=== PATIENT | female | born 1940 | race Caucasian/White ===

== ENCOUNTER 2020-10-30 19:32 | Observation (INO) | payer MEDICARE ==
--- NOTE | 2020-10-30 20:25 | ERPHSYRPT ---
- History of Present Illness Source: patient, EMS Exam Limitations: no limitations Patient Subjective Stated Complaint: Low BS, passed out in chair Triage Nursing Assessment: pt had low BS and passed out in chair at home. Pt was in the chair, checking her BS and trying to eat when this occured. Pt denies hitting her head, states, "I was sitting in a high back chair". Pt's grandsons witnessed the episode and called EMS. BS was 57 upon EMS arrival. Glucagon oral administered by rescue, pt's BS gradually came up, pt's BS was 102 on arrival to ER via EMS. Physician History: 79 yo wf w syncopal episode at kitchen table before eating. EMS arrived and discovered glucose 57 and oral glucose given w improvement in mentation. Pt is alert and oriented x3 and denies focal weakness/SÁNCHEZ/trauma/chest pain/fever/dyspnea/N/V/diarrhea/dysuria/hematuria. Timing/Duration: resolved prior to arrival Severity: mild Character of Deficits: other (syncope) Deficits: no difficulties Baseline/Normal Cognition: alert oriented x 3 Current Cognition: alert oriented x 3 Baseline Gait: walks w/o assistance Associated Symptoms: denies symptoms Allergies/Adverse Reactions: No Known Drug Allergies Allergy (Verified 10/31/20 02:54) Home Medications: Furosemide 40 mg PO DAILY PRN PRN 10/30/20 [History] Gabapentin 300 mg PO HS 10/30/20 [History] Glipizide [Glipizide ER] 5 mg PO BID 10/30/20 [History] Hydrocodone Bit/Acetaminophen [[place] 10-325 Tablet] 1 tab PO TID PRN PRN 10/30/20 [History] Levothyroxine Sodium [Euthyrox] 100 mcg PO DAILY 10/30/20 [History] Meclizine HCl 25 mg [Antivert 25 mg] 25 mg PO TID 10/30/20 [History] Metoprolol Tartrate 50 mg PO BID 10/30/20 [History] Potassium Chloride 10 meq PO DAILY PRN PRN 10/30/20 [History] Simvastatin 10 mg [Zocor 10MG] 10 mg PO HS 10/30/20 [History] Aspirin EC 81 mg [Ecotrin 81 mg] 81 mg PO DAILY 10/31/20 [History] Insulin Glargine,Hum.rec.anlog [Lantus Solostar] 12 unit SQ DAILY 10/31/20 [History] Hx Tetanus, Diphtheria Vaccination/Date Given: Yes Hx Influenza Vaccination/Date Given: Yes Hx Pneumococcal Vaccination/Date Given: Yes Immunizations Up to Date: Yes Travel Risk - International Travel Have you traveled outside of the country in past 3 weeks: No - Coronavirus Screening Are you exhibiting any of the following symptoms?: No Close contact with a COVID-19 positive Pt in past 14-21 Days: No - Review of Systems Constitutional: No Symptoms Eyes: No Symptoms Ears, Nose, & Throat: No Symptoms Respiratory: No Symptoms Cardiac: No Symptoms Abdominal/Gastrointestinal: No Symptoms Genitourinary Symptoms: No Symptoms Musculoskeletal: No Symptoms Skin: No Symptoms Neurological: No Symptoms, Other (syncope) Psychological: No Symptoms Endocrine: No Symptoms Hematologic/Lymphatic: No Symptoms Immunological/Allergic: No Symptoms - Past Medical History Pertinent Past Medical History: Yes Neurological History: No Pertinent History ENT History: Cataracts Cardiac History: Coronary Artery Disease, High Cholesterol, Hypertension Respiratory History: CHF Endocrine Medical History: Diabetes Type II, Hypothyroidism Musculoskeletal History: No Pertinent History GI Medical History: No Pertinent History History: No Pertinent History Psycho-Social History: No Pertinent History Female Reproductive Disorders: No Pertinent History - Past Surgical History Past Surgical History: Yes Neuro Surgical History: No Pertinent History Cardiac: CABG, Cardiac Catheterization Respiratory: No Pertinent History Gastrointestinal: No Pertinent History Genitourinary: No Pertinent History Musculoskeletal: Joint Replacement Female Surgical History: Hysterectomy Other Surgical History: 3 back surgeries. Total rt hip - Social History Smoking Status: Never smoker Exposure to second hand smoke: No Drug Use: none Patient Lives Alone: No - Female History Hx Now: No - Nursing Vital Signs Nursing Vital Signs: Initial Vital Signs Temperature 97.1 F 10/30/20 19:39 Pulse Rate 67 10/30/20 19:39 Respiratory Rate 18 10/30/20 19:39 Blood Pressure 183/87 10/30/20 19:39 O2 Sat by Pulse Oximetry 98 10/30/20 19:39 Pain Scale Pain Intensity 0 - Lyndsay Coma Scale Best Eye Response ([place]): (4) open spontaneously Best Verbal Response ([place]): (5) oriented Best Motor Response ([place]): (6) obeys commands Lyndsay Total: 15 - Physical Exam General Appearance: no apparent distress Eye Exam: bilateral eye: normal inspection, PERRL, EOMI Ears, Nose, Throat Exam: normal ENT inspection, TMs normal, pharynx normal, moist mucous membranes, pharyngeal erythema Neck Exam: normal inspection, supple, full range of motion, No meningismus, No mass, No Brudzinski, No Kernig's, No carotid bruit Respiratory: normal breath sounds, lungs clear, airway intact, No respiratory distress Cardiovascular: regular rate/rhythm, normal heart sounds, normal peripheral pulses, No murmur Gastrointestinal: soft, normal bowel sounds, No tenderness Back Exam: normal inspection, normal range of motion, No CVA tenderness Extremity Exam: normal inspection, normal range of motion, pelvis stable Peripheral Pulses: carotid (R): 2+, carotid (L): 2+ Mental Status: alert, oriented x 3, cooperative sonographer Exam: normal hearing, normal speech, PERRL Coordination/Gait: normal finger to nose, normal gait, normal cerebellar function, negative Romberg's sign Motor/Sensory: no motor deficit, no sensory deficit, no pronator drift, negative Babinski's sign DTR: bicep (R): 2+, bicep (L): 2+, knee (R): 2+, knee (L): 2+ Skin Exam: normal color, warm, dry, No rash SpO2 Interpretation: normal SpO2: 98 O2 Delivery: Room Air - Course EKG Interpreted by Me: RATE (NSR rate 67/Poor R wave progression/Normal QT-QTc) Ordered Tests: Active Orders 24 hr Category Date Time Status EKG-ER Only STAT Care 10/30/20 20:19 Completed IV Insertion STAT Care 10/30/20 20:19 Completed Heart-Healthy Diet Diet 10/31/20 Breakfast Active HEAD WITHOUT CONTRAST [CT] Stat Exams 10/30/20 21:54 Taken CBC W DIFF Stat Lab 10/30/20 20:40 Completed CMP Stat Lab 10/30/20 20:40 Completed CULTURE,URINE Stat Lab 10/30/20 20:33 Received LIPID PROFILE AM.LAB Lab 10/31/20 04:00 Ordered POCT GLUCOSE Stat Lab 10/30/20 19:43 Completed POCT GLUCOSE Stat Lab 10/30/20 22:31 Completed POCT GLUCOSE Stat Lab 10/31/20 00:13 Completed TROPONIN Q3H Lab 10/30/20 20:40 Completed TROPONIN Q3H Lab 10/30/20 23:30 Completed TROPONIN Q3H Lab 10/31/20 02:00 Completed TROPONIN Q3H Lab 10/31/20 05:30 Ordered TROPONIN Q3H Lab 10/31/20 08:30 Ordered UA W/RFX UR CULTURE Stat Lab 10/30/20 20:33 Completed Transfer Order Routine Transfer 10/31/20 Completed Medication Summary Generic Name Dose Route Start Last Admin Trade Name Julian PRN Reason Stop Dose Admin Acetaminophen 650 mg 10/31/20 01:03 Tylenol 325 Mg PO 11/30/20 01:02 Q4H PRN PRN PAIN AND/OR FEVER Al Hydrox/Mg Hydrox/Simethicone 30 ml 10/31/20 01:03 Maalox Es 30 Ml Unit Dose PO 11/30/20 01:02 Q4H PRN PRN INDIGESTION Sodium Chloride 500 mls @ 20 mls/hr 10/31/20 01:15 10/31/20 03:47 Sodium Chloride 0.9% 500 Ml IV 11/30/20 01:14 20 mls/hr .Q24H PARVEEN Administration Insulin Human Regular 0 unit 10/31/20 01:13 Humulin R SQ 11/30/20 01:12 UD PRN HYPERGLYCEMIA Magnesium Hydroxide 30 - 60 ml 10/31/20 01:03 Milk Of Magnesia 30 Ml PO 11/30/20 01:02 QDP PRN CONSTIPATION Ondansetron HCl 4 mg 10/31/20 01:03 Zofran 4 Mg/2 Ml Vial IV 11/30/20 01:02 Q4H PRN PRN NAUSEA/VOMITING Senna/Docusate Sodium 2 udtab 10/31/20 01:03 Senokot-S Tablet PO 11/30/20 01:02 BID PRN PRN CONSTIPATION Discontinued Medications Generic Name Dose Route Start Last Admin Trade Name Julian PRN Reason Stop Dose Admin Hydrocodone Bitart/Acetaminophen 1 tab 10/31/20 00:16 10/31/20 00:40 Mcfaddin 10/325 Mg Tablet PO 10/31/20 00:17 1 tab STAT ONE Administration Hydrocodone Bitart/Acetaminophen Confirm 10/31/20 00:38 Mcfaddin 10/325 Mg Tablet Administered 10/31/20 00:39 Dose 1 tab .ROUTE .STK-MED ONE Hydralazine HCl 20 mg 10/30/20 23:07 10/30/20 23:12 Apresoline 20 Mg/Ml Inj IV 10/30/20 23:08 20 mg STAT ONE Administration Hydralazine HCl Confirm 10/30/20 23:11 Apresoline 20 Mg/Ml Inj Administered 10/30/20 23:12 Dose 20 mg .ROUTE .K-[facility] ONE Lab/Rad Data: Laboratory Result Diagrams 10/30/20 20:40 10/30/20 20:40 Laboratory Results 10/31/20 10/31/20 10/30/20 Range/Units 02:00 00:13 23:30 WBC (4.0-10.5) K/mm3 RBC (4.1-5.4) M/mm3 Hgb (12.0-16.0) gm/dl Hct (35-47) % MCV (78-100) fl MCH (26-32) pg MCHC (32-36) g/dl RDW (11.5-14.0) % Plt Count (150-450) K/mm3 MPV (7.5-11.0) fl Gran % (36.0-66.0) % Eos # (Auto) (0-0.5) Absolute Lymphs (auto) (1.0-4.6) Absolute Monos (auto) (0.0-1.3) Lymphocytes % (24.0-44.0) % Monocytes % (0.0-12.0) % Eosinophils % (0.00-5.0) % Basophils % (0.0-0.4) % Absolute Granulocytes (1.4-6.9) Basophils # (0-0.4) Sodium (137-145) mmol/L Potassium (3.5-5.1) mmol/L Chloride (98-107) mmol/L Carbon Dioxide (22-30) mmol/L Anion Gap (5-15) MEQ/L BUN (7-17) mg/dL Creatinine (0.52-1.04) mg/dL Estimated GFR ML/MIN Glucose (74-106) mg/dL POC Glucometer 184 H (74 to 106) mg/dL Calcium (8.4-10.2) mg/dL Total Bilirubin (0.2-1.3) mg/dL AST (14-36) U/L ALT (0-35) U/L Alkaline Phosphatase (38-126) U/L Troponin I 0.028 0.029 (0.000-0.034) ng/mL Serum Total Protein (6.3-8.2) g/dL Albumin (3.5-5.0) g/dL Urine Color (YELLOW) Urine Appearance (CLEAR) Urine pH (5-6) Ur Specific [place] (1.005-1.025) Urine Protein (Negative) Urine Ketones (NEGATIVE) Urine Blood (0-5) Jace/ul Urine Nitrite (NEGATIVE) Urine Bilirubin (NEGATIVE) Urine Urobilinogen (0-1) mg/dL Ur Leukocyte Esterase (NEGATIVE) Urine WBC (Auto) (0-5) /HPF Urine RBC (Auto) (0-2) /HPF U Epithel Cells (Auto) (FEW) /HPF Urine Bacteria (Auto) (NEGATIVE) /HPF Urine Mucus (Auto) (NEGATIVE) /HPF Urine Culture Reflexed (NO) Urine Glucose (NEGATIVE) mg/dL 10/30/20 10/30/20 10/30/20 Range/Units 22:31 20:40 20:40 WBC (4.0-10.5) K/mm3 RBC (4.1-5.4) M/mm3 Hgb (12.0-16.0) gm/dl Hct (35-47) % MCV (78-100) fl MCH (26-32) pg MCHC (32-36) g/dl RDW (11.5-14.0) % Plt Count (150-450) K/mm3 MPV (7.5-11.0) fl Gran % (36.0-66.0) % Eos # (Auto) (0-0.5) Absolute Lymphs (auto) (1.0-4.6) Absolute Monos (auto) (0.0-1.3) Lymphocytes % (24.0-44.0) % Monocytes % (0.0-12.0) % Eosinophils % (0.00-5.0) % Basophils % (0.0-0.4) % Absolute Granulocytes (1.4-6.9) Basophils # (0-0.4) Sodium 139 (137-145) mmol/L Potassium 5.4 H (3.5-5.1) mmol/L Chloride 108 H (98-107) mmol/L Carbon Dioxide 21 L (22-30) mmol/L Anion Gap 15.8 H (5-15) MEQ/L BUN 41 H (7-17) mg/dL Creatinine 2.98 H (0.52-1.04) mg/dL Estimated GFR 16.0 ML/MIN Glucose 95 (74-106) mg/dL POC Glucometer 79 (74 to 106) mg/dL Calcium 9.6 (8.4-10.2) mg/dL Total Bilirubin 0.60 (0.2-1.3) mg/dL AST 35 (14-36) U/L ALT 26 (0-35) U/L Alkaline Phosphatase 103 (38-126) U/L Troponin I 0.036 H* (0.000-0.034) ng/mL Serum Total Protein 9.4 H (6.3-8.2) g/dL Albumin 4.9 (3.5-5.0) g/dL Urine Color (YELLOW) Urine Appearance (CLEAR) Urine pH (5-6) Ur Specific [place] (1.005-1.025) Urine Protein (Negative) Urine Ketones (NEGATIVE) Urine Blood (0-5) Jace/ul Urine Nitrite (NEGATIVE) Urine Bilirubin (NEGATIVE) Urine Urobilinogen (0-1) mg/dL Ur Leukocyte Esterase (NEGATIVE) Urine WBC (Auto) (0-5) /HPF Urine RBC (Auto) (0-2) /HPF U Epithel Cells (Auto) (FEW) /HPF Urine Bacteria (Auto) (NEGATIVE) /HPF Urine Mucus (Auto) (NEGATIVE) /HPF Urine Culture Reflexed (NO) Urine Glucose (NEGATIVE) mg/dL 10/30/20 10/30/20 10/30/20 Range/Units 20:40 20:33 19:43 WBC 6.0 (4.0-10.5) K/mm3 RBC 4.20 (4.1-5.4) M/mm3 Hgb 13.0 (12.0-16.0) gm/dl Hct 40.7 (35-47) % MCV 96.9 (78-100) fl MCH 31.0 (26-32) pg MCHC 31.9 L (32-36) g/dl RDW 13.0 (11.5-14.0) % Plt Count 120 L (150-450) K/mm3 MPV 10.8 (7.5-11.0) fl Gran % 76.5 H (36.0-66.0) % Eos # (Auto) 0.08 (0-0.5) Absolute Lymphs (auto) 0.73 L (1.0-4.6) Absolute Monos (auto) 0.59 (0.0-1.3) Lymphocytes % 12.1 L (24.0-44.0) % Monocytes % 9.8 (0.0-12.0) % Eosinophils % 1.3 (0.00-5.0) % Basophils % 0.3 (0.0-0.4) % Absolute Granulocytes 4.60 (1.4-6.9) Basophils # 0.02 (0-0.4) Sodium (137-145) mmol/L Potassium (3.5-5.1) mmol/L Chloride (98-107) mmol/L Carbon Dioxide (22-30) mmol/L Anion Gap (5-15) MEQ/L BUN (7-17) mg/dL Creatinine (0.52-1.04) mg/dL Estimated GFR ML/MIN Glucose (74-106) mg/dL POC Glucometer 75 (74 to 106) mg/dL Calcium (8.4-10.2) mg/dL Total Bilirubin (0.2-1.3) mg/dL AST (14-36) U/L ALT (0-35) U/L Alkaline Phosphatase (38-126) U/L Troponin I (0.000-0.034) ng/mL Serum Total Protein (6.3-8.2) g/dL Albumin (3.5-5.0) g/dL Urine Color STRAW (YELLOW) Urine Appearance CLEAR (CLEAR) Urine pH 7.0 (5-6) Ur Specific [place] 1.006 (1.005-1.025) Urine Protein 30 (Negative) Urine Ketones NEGATIVE (NEGATIVE) Urine Blood MODERATE (0-5) Jace/ul Urine Nitrite NEGATIVE (NEGATIVE) Urine Bilirubin NEGATIVE (NEGATIVE) Urine Urobilinogen NEGATIVE (0-1) mg/dL Ur Leukocyte Esterase SMALL (NEGATIVE) Urine WBC (Auto) 3-5 (0-5) /HPF Urine RBC (Auto) NONE (0-2) /HPF U Epithel Cells (Auto) RARE (FEW) /HPF Urine Bacteria (Auto) RARE (NEGATIVE) /HPF Urine Mucus (Auto) SLIGHT (NEGATIVE) /HPF Urine Culture Reflexed YES (NO) Urine Glucose 50 (NEGATIVE) mg/dL - Progress Progress: improved Progress Note: 10/31/20 00:[address] Helms 10/31/20 02:43 Pt w bradycardia w HR decreasing to mid 30's wo symptoms. She was awake/alert/wo focal weakness during entire stay. Hypertension treated w 20mg IV Hydralyzine w success. - Departure Departure Disposition: Observation Clinical Impression: Bradycardia, Hypoglycemia Condition: Fair Critical Care Time: No
[2020-10-30 20:53] LABS: BASOPHIL % 0.3 % (0.0-0.4); Basophil (Absolute #) 0.02 (0-0.4); Eosinophil % 1.3 % (0.00-5.0); Eosinophil (Absolute #) 0.08 (0-0.5); Hematocrit 40.7 % (35-47); Lymphocyte (Absolute #) 0.73 (1.0-4.6); Lymphocytes % 12.1 % (24.0-44.0); Mean Cell Volume 96.9 fl (78-100); Mean Corpuscular Hgb Concent. 31.9 g/dl (32-36); Mean Platelet Volume 10.8 fl (7.5-11.0); Monocyte (Absolute #) 0.59 (0.0-1.3); Monocytes % 9.8 % (0.0-12.0); Neutrophil % 76.5 % (36.0-66.0); Platelet Count 120 K/mm3 (150-450)
[2020-10-30 21:00] LABS: Appearance CLEAR (CLEAR); Bacteria RARE /HPF (NEGATIVE); Bilirubin NEGATIVE (NEGATIVE); Blood MODERATE Ery/ul (0-5); Epithelial Cells RARE /HPF (FEW); Glucose 50 mg/dL (NEGATIVE); Ketones NEGATIVE (NEGATIVE); Leukocyte Esterase SMALL (NEGATIVE); Mucus SLIGHT /HPF (NEGATIVE); Nitrite NEGATIVE (NEGATIVE); Protein,Urine Dip 30 (Negative); Specific Gravity 1.006 (1.005-1.025); Urobilinogen NEGATIVE mg/dL (0-1)
[2020-10-30 21:08] LABS: ALBUMIN 4.9 g/dL (3.5-5.0); ANION GAP 15.8 MEQ/L (5-15); BILIRUBIN,TOTAL 0.6 mg/dL (0.2-1.3); Calcium 9.6 mg/dL (8.4-10.2); Creatinine 1 2.98 mg/dL (0.52-1.04); Potassium 5.4 mmol/L (3.5-5.1); Total Protein 9.4 g/dL (6.3-8.2)
[2020-10-30] MEDS ORDERED: APRESOLINE 20 MG/ML INJ IV ONE (23:07)
[2020-10-30] MEDS ORDERED: APRESOLINE 20 MG/ML INJ ONE (23:11)
[2020-10-31] MEDS ORDERED: Norco 10/325 MG Tablet PO ONE (00:16)
[2020-10-31] MEDS ORDERED: Norco 10/325 MG Tablet ONE (00:38)
[2020-10-31] MEDS ORDERED: Senokot-S Tablet PO PRN (01:03)
[2020-10-31] MEDS ORDERED: MAALOX ES 30 ML UNIT DOSE PO PRN (01:03)
[2020-10-31] MEDS ORDERED: MILK OF MAGNESIA 30 ML PO PRN (01:03)
[2020-10-31] MEDS ORDERED: TYLENOL 325 MG PO PRN (01:03)
[2020-10-31] MEDS ORDERED: Zofran 4 MG/2 ML VIAL IV PRN (01:03)
[2020-10-31] MEDS ORDERED: HUMULIN R SQ PRN (01:13)
[2020-10-31] MEDS ORDERED: Sodium Chloride 0.9% 500 ML 500 ML IV SCH (01:15)
[2020-10-31 07:34] VITALS: BP 139/65; PULSE 66
[2020-10-31 08:48] VITALS: O2SAT 95
--- NOTE | 2020-10-31 09:22 | XRAY ---
Indication: Syncope and collapse. Multiple contiguous axial images obtained through the head without contrast. Comparison: None Age-appropriate global atrophy and minimal periventricular degenerative micro-ischemia bilaterally. No acute intracranial hemorrhage, abnormal extra-axial fluid collection, or mass effect. Fourth ventricle is midline without hydrocephalus. Bony calvarium intact. Visualized paranasal sinuses and mastoid air cells are clear. Impression: Nonacute senile brain. Comment: Preliminary interpretation was made by [facility]. No critical discrepancy.
[2020-10-31] MEDS ORDERED: INSULIN GLARGINE HUM REC ANLOG 12 UNIT SQ SCH (10:00)
--- NOTE | 2020-10-31 14:19 | SSS ---
DISCHARGE DIAGNOSES: 1) HYPOGLYCEMIA. 2) BRADYCARDIA. 3) RENAL FAILURE. 4) DIABETES MELLITUS. HISTORY: The patient is an 79 year old white female who was apparently at home feeling that her blood sugar was getting a little low. She was sitting at her table checking her blood sugar and tried to take in a snack when she had a syncopal episode. Her grandson lives with her and witnessed the event. She was out for a short time. EMS was summoned. She was given Glucagon tablets and by the time the patient was seen in the emergency room her blood sugars were improved. She was found to be bradycardic with heart rate in the 30's. The patient was felt to need to stay overnight and was kept in the hospital for further evaluation and management. PAST MEDICAL/SURGICAL HISTORY: Significant for her coronary artery disease, diabetes mellitus type II, diabetic nephropathy, hypothyroid. MEDICATIONS: Her current medications have been aspirin 81 mg a day. We have been holding her Lasix from home as she has not needed it for leg swelling. Gabapentin 300 mg at night, Glipizide extended release 5 mg b.i.d., [place] 10/325 PRN basis. She takes 12 units of insulin Glargine in the morning and takes short acting insulin if her blood sugars are above 190. She takes Meclizine 25 mg t.i.d., metoprolol 50 mg twice a day, potassium 10 mEq and she takes Lasix and Simvastatin 10 mg daily. ALLERGIES: NKDA. PHYSICAL EXAMINATION: Her vital signs on admission showed her temperature to be 97.1F, pulse 67, respiratory rate 18 and blood pressure 183/87. O2 saturation 98%. HEENT: Normocephalic, atraumatic. Pupils equal round reactive to light. Extraocular movements intact. Oropharynx is slightly dry. NECK: Supple without lymphadenopathy, thyromegaly or JVD. CHEST: Clear to auscultation. HEART: Regular rate and rhythm. ABDOMEN: Soft. No palpable masses. EXTREMITIES: Without cyanosis, clubbing or edema. NEUROLOGIC: The patient is alert and oriented x3. No focal deficits were noted. LAB DATA AND TESTS: The patient had a CT scan of the brain which was normal. She had a sugar at 2000 hours of 95. Her BUN was 41, creatinine 2.98 which is up from 2.0 six months ago. Her potassium was slightly elevated at 5.4. Sodium normal at 139. Liver enzymes were normal. Alkaline phosphatase slightly up at 16.8. UA showed specific gravity 1.006 and was otherwise essentially normal. Troponin was initially measured at 0.029 but had risen to 0.093 likely secondary to her renal insufficiency as she has had no cardiac symptoms otherwise. She had a lipid panel showing her total cholesterol being 121 with HDL 40 and LDL 53. HOSPITAL COURSE: The patient was admitted overnight with observation. Her heart rate has been okay since admission. The patient's sugars have also normalized. She has been totally asymptomatic otherwise since her evaluation in the emergency room. The patient is currently sitting in bed eating her breakfast and is getting back to her normal state of health. She has been up to the bathroom without assistance and is feeling back to her normal state of health and felt to be ready for discharge home again. The plan will be to change her discharge medications to eliminate many of her medications presently and re-evaluate her in the next week. The patient has been monitoring her sugars at home as well as her blood pressure as well as her blood sugars checked three times a day. Her discharge medications will now only include aspirin 81 mg a day, take a half tablet of hydrocodone 5/325 mg every four hours PRN. She will use her insulin Glargine in the morning 12 units, Euthyrox 100 mcg daily. Everything else will be on hold at the present time with re-evaluation in the office within the next week.
[2020-11-01] MEDS ORDERED: SYNTHROID 100 MCG PO SCH (10:00)
[2020-11-01] MEDS ORDERED: ECOTRIN 81 MG PO SCH (10:00)
[2020-11-01] MEDS ORDERED: Lantus Insulin SQ SCH (10:00)
== END 2020-10-31 09:49 | disposition home or self-care (01) ==
LOC: ED 19:32 → MED SURG 10-31 02:19
PROVIDERS: ADMIT Family Medicine; ATTEND Family Medicine
DX: E11.649 Type 2 diabetes mellitus with hypoglycemia without coma (principal); R55 Syncope and collapse; Z79.899 Other long term (current) drug therapy; Z79.4 Long term (current) use of insulin; E11.9 Type 2 diabetes mellitus without complications; I10 Essential (primary) hypertension; E78.00 Pure hypercholesterolemia, unspecified; E03.9 Hypothyroidism, unspecified; R00.1 Bradycardia, unspecified; N19 Unspecified kidney failure
CPT/HCPCS: 36000; 36415; 70450; 80053; 80061; 81001; 82947; 83721; 84484; 85025; 87086; 93005; 93268; 94762; 96374; 99285; G0378; J0360; A9270-GY

== ENCOUNTER 2020-12-09 16:08 | Emergency (ER) | payer MEDICARE ==
[2020-12-09] MEDS ORDERED: DUONEB 0.5-3 MG/3 ml Neb IH ONE ×2 (16:38→16:50)
[2020-12-09] MEDS ORDERED: BABY ASPIRIN 81 MG CHEW PO ONE (16:39)
--- NOTE | 2020-12-09 16:56 | ERPHSYRPT ---
- History of Present Illness Time Seen by Provider: 12/09/20 16:11 Patient Subjective Stated Complaint: dizziness Triage Nursing Assessment: pt to ED c/o dizziness when bending over x couple days and episode of hyperglycemia at home today. reports fsbs 329, insulin taken, then reports drop to 229. hx diabetes. lung sounds crankles in LLL, clear otherwise. heart sounds clear. ambulatory WC to bed with 1 assist. denies pain currently. reports she was trying to be seen at resp clinic and was referred to ED. RN attempted to call resp clinic to get report at 1615 but no answer. pt states she had pacemaker placed last month by Dr. Anthony. Physician History: 79 years old female with history of diabetes mellitus, sick sinus syndrome status post pacemaker placement, congestive heart failure presented to the ER with chief complaint of feeling lightheaded/dizzy with bending over off and on for the last 2 days and also having progressive dyspnea especially with activity and wheezing/crackling all over. Patient reports increased lower extremity swelling bilaterally. She does take water pill as needed. Denies any chest pain but has tightness and pressure with productive cough of clear to yellow sputum mild in amount. Does not report any fever or chills with it. Patient was initially at respiratory clinic and is sent in here for further evaluation. Denies any sick contact. Patient was hypoxic on presentation with oxygen saturation around 88%, placed on 2 L and improved to 96%. Does not use oxygen at home Timing/Duration: day(s) (3), intermittent, gradual onset, worse Activities at Onset: activity Severity of Dyspnea-Max: moderate Severity of Dyspnea-Current: moderate Modifying Factors: Improves With: rest. Worsens With: activity, exertion Associated Symptoms: cough, edema, lightheadedness, wheezing, ankle swelling, heaviness, productive cough, tightness, No chest pain/discomfort, No fever, No h eart racing Allergies/Adverse Reactions: No Known Drug Allergies Allergy (Verified 12/09/20 16:34) Home Medications: Levothyroxine Sodium [Euthyrox] 100 mcg PO DAILY 10/30/20 [History] Aspirin EC 81 mg [Ecotrin 81 mg] 81 mg PO DAILY 10/31/20 [History] Insulin Glargine,Hum.rec.anlog [Lantus Solostar] 12 unit SQ DAILY 10/31/20 [History] Hx Tetanus, Diphtheria Vaccination/Date Given: Yes Hx Influenza Vaccination/Date Given: Yes Hx Pneumococcal Vaccination/Date Given: Yes Travel Risk - International Travel Have you traveled outside of the country in past 3 weeks: No - Coronavirus Screening Are you exhibiting any of the following symptoms?: No Close contact with a COVID-19 positive Pt in past 14-21 Days: No - Review of Systems Constitutional: Fatigue, Weakness Eyes: No Symptoms Ears, Nose, & Throat: No Symptoms Respiratory: Cough, Dyspnea, Dyspnea on Exertion (NAVA), Wheezing Cardiac: Edema Abdominal/Gastrointestinal: No Symptoms Genitourinary Symptoms: No Symptoms Musculoskeletal: No Symptoms Skin: No Symptoms Neurological: No Symptoms Psychological: No Symptoms Endocrine: No Symptoms Hematologic/Lymphatic: No Symptoms Immunological/Allergic: No Symptoms - Past Medical History Pertinent Past Medical History: Yes Neurological History: No Pertinent History ENT History: Cataracts Cardiac History: Coronary Artery Disease, High Cholesterol, Hypertension Respiratory History: CHF Endocrine Medical History: Diabetes Type II, Hypothyroidism Musculoskeletal History: No Pertinent History GI Medical History: No Pertinent History History: No Pertinent History Psycho-Social History: No Pertinent History Female Reproductive Disorders: No Pertinent History Other Medical History: prolapsed bladder. Musculoskeletal: Right total hip replacement - Past Surgical History Past Surgical History: Yes Neuro Surgical History: No Pertinent History Cardiac: CABG, Cardiac Catheterization Respiratory: No Pertinent History Gastrointestinal: No Pertinent History Genitourinary: No Pertinent History Musculoskeletal: Joint Replacement Female Surgical History: Hysterectomy Other Surgical History: 3 back surgeries. Total rt hip. pacemaker Oct 2020. - Social History Smoking Status: Never smoker Exposure to second hand smoke: No Drug Use: none Patient Lives Alone: No (daughter) - Female History Hx Now: No - Nursing Vital Signs Nursing Vital Signs: Initial Vital Signs Temperature 97.3 F 12/09/20 16:22 Pulse Rate 94 H 12/09/20 16:22 Respiratory Rate 18 12/09/20 16:22 Blood Pressure 136/74 12/09/20 16:22 O2 Sat by Pulse Oximetry 88 L 12/09/20 16:22 Pain Scale Pain Intensity 0 - Physical Exam General Appearance: no apparent distress, alert Eye Exam: eyes nml inspection Ears, Nose, Throat Exam: hearing grossly normal, pharyngeal erythema Neck Exam: normal inspection, non-tender, supple, full range of motion Respiratory Exam: normal breath sounds, lungs clear Cardiovascular/Chest Exam: normal heart sounds, regular rate/rhythm Abdominal/Gastrointestinal Exam: soft, normal bowel sounds, No tenderness Extremity Exam: non-tender, normal range of motion, pedal edema, swelling Neurologic Exam: alert, oriented x 3, cooperative Skin Exam: normal color SpO2 Interpretation: normal SpO2: 88 O2 Delivery: Nasal Cannula - Course EKG Interpreted by Me: RATE (89), NORMAL AXIS, prolonged QT interval, Other (Prolonged QT. Anteroseptal Q waves) Ordered Tests: Active Orders 24 hr Category Date Time Status Banquet Supervisor STAT Care 12/09/20 16:39 Active EKG-ER Only STAT Care 12/09/20 16:38 Active IV Insertion STAT Care 12/09/20 16:38 Active Oxygen-ED Only Nasal Cannula 2 lpm Care 12/09/20 16:38 Active CHEST 1 VIEW (PORTABLE) Stat Exams 12/09/20 16:39 Completed BLOOD CULTURE Stat Lab 12/09/20 17:00 Received CBC W DIFF Stat Lab 12/09/20 17:00 Completed CMP Stat Lab 12/09/20 17:00 Completed D-DIMER QUANTITATIVE Stat Lab 12/09/20 17:00 Completed FECAL OCCULT BLOOD -DIAGNOSTIC Stat Lab 12/09/20 18:23 Ordered Lactic Acid Stat Lab 12/09/20 16:38 Completed MAGNESIUM Stat Lab 12/09/20 17:00 Completed NT PRO BNP Stat Lab 12/09/20 17:00 Completed PT INR [PROTIME WITH INR] Stat Lab 12/09/20 17:00 Completed PTT Stat Lab 12/09/20 17:00 Completed TROPONIN Q3H Lab 12/09/20 17:00 Completed TROPONIN Q3H Lab 12/09/20 19:45 Ordered TROPONIN Q3H Lab 12/09/20 22:45 Ordered TROPONIN Q3H Lab 12/10/20 01:45 Ordered TROPONIN Q3H Lab 12/10/20 04:45 Ordered TSH [TSH, 3RD Generation] Stat Lab 12/09/20 17:00 Completed UA W/RFX UR CULTURE Stat Lab 12/09/20 16:57 Received Respiratory Therapy Assessment DAILY RT 12/09/20 17:07 Completed Medication Summary Generic Name Dose Route Start Last Admin Trade Name Freq PRN Reason Stop Dose Admin Pantoprazole Sodium 80 mg/ 500 mls @ 50 mls/hr 12/09/20 17:45 Sodium Chloride IV 01/08/21 17:44 .Q10H PARVEEN Discontinued Medications Generic Name Dose Route Start Last Admin Trade Name Julian PRN Reason Stop Dose Admin Albuterol/Ipratropium 3 ml 12/09/20 16:38 12/09/20 17:06 Duoneb 0.5-3 Mg/3 Ml Neb IH 12/09/20 16:39 3 ml STAT ONE Administration Albuterol/Ipratropium Confirm 12/09/20 16:50 Duoneb 0.5-3 Mg/3 Ml Neb Administered 12/09/20 16:51 Dose 3 ml IH .STK-MED ONE Aspirin 324 mg 12/09/20 16:39 12/09/20 16:54 Baby Aspirin 81 Mg Chew PO 12/09/20 16:40 324 mg STAT ONE Administration Furosemide 40 mg 12/09/20 17:54 12/09/20 18:29 Lasix 40 Mg/4 Ml IV 12/09/20 17:55 40 mg STAT ONE Administration Furosemide Confirm 12/09/20 18:17 Lasix 40 Mg/4 Ml Administered 12/09/20 18:18 Dose 40 mg .ROUTE .STK-MED ONE Azithromycin 500 mg in 250 mls @ 250 mls/hr 12/09/20 17:41 Zithromax 500 Mg/ 250 Ml Nacl Premix IV 12/09/20 18:40 STAT STA Ceftriaxone Sodium/Dextrose 1 g in 50 mls @ 100 mls/hr 12/09/20 17:41 12/09/20 18:28 Rocephin 1 Gm-D5w 50 Ml Bag IV 12/09/20 18:10 100 mls/hr STAT STA 100 mls/hr Administration Azithromycin Confirm 12/09/20 18:18 Zithromax 500 Mg/ 250 Ml Nacl Premix Administered 12/09/20 18:19 Dose 500 mg in 250 mls @ ud IV .STK-MED ONE Ceftriaxone Sodium/Dextrose Confirm 12/09/20 18:18 Rocephin 1 Gm-D5w 50 Ml Bag Administered 12/09/20 18:19 Dose 1 g in 50 mls @ ud IV .STK-MED ONE Pantoprazole Sodium 40 mg 12/09/20 17:42 12/09/20 18:29 Protonix 40 Mg Iv IV 12/09/20 17:43 40 mg STAT ONE Administration Pantoprazole Sodium Confirm 12/09/20 18:17 Protonix 40 Mg Iv Administered 12/09/20 18:18 Dose 40 mg IV .STK-MED ONE Lab/Rad Data: Laboratory Result Diagrams 12/09/20 17:00 12/09/20 17:00 Laboratory Results 12/09/20 12/09/20 12/09/20 Range/Units 17:00 17:00 17:00 WBC (4.0-10.5) K/mm3 RBC (4.1-5.4) M/mm3 Hgb (12.0-16.0) gm/dl Hct (35-47) % MCV (78-100) fl MCH (26-32) pg MCHC (32-36) g/dl RDW (11.5-14.0) % Plt Count (150-450) K/mm3 MPV (7.5-11.0) fl Gran % (36.0-66.0) % Eos # (Auto) (0-0.5) Absolute Lymphs (auto) (1.0-4.6) Absolute Monos (auto) (0.0-1.3) Lymphocytes % (24.0-44.0) % Monocytes % (0.0-12.0) % Eosinophils % (0.00-5.0) % Basophils % (0.0-0.4) % Absolute Granulocytes (1.4-6.9) Basophils # (0-0.4) PT 15.4 H (9.95-12.35) SECONDS INR 1.36 (0.8-3.0) APTT 33.4 (25.3-37.0) SECONDS D-Dimer 2115 H* (215-500) ng/mL Sodium (137-145) mmol/L Potassium (3.5-5.1) mmol/L Chloride (98-107) mmol/L Carbon Dioxide (22-30) mmol/L Anion Gap (5-15) MEQ/L BUN (7-17) mg/dL Creatinine (0.52-1.04) mg/dL Estimated GFR ML/MIN Glucose (74-106) mg/dL Lactic Acid (0.4-2.0) Calcium (8.4-10.2) mg/dL Magnesium (1.6-2.3) mg/dL Total Bilirubin (0.2-1.3) mg/dL AST (14-36) U/L ALT (0-35) U/L Alkaline Phosphatase (38-126) U/L Troponin I (0.000-0.034) ng/mL NT-Pro-B Natriuret Pep (0-1800) pg/mL Serum Total Protein (6.3-8.2) g/dL Albumin (3.5-5.0) g/dL TSH 3rd Generation 1.340 (0.47-4.68) mIU/L 12/09/20 12/09/20 12/09/20 Range/Units 17:00 17:00 17:00 WBC 10.8 H (4.0-10.5) K/mm3 RBC 2.79 L (4.1-5.4) M/mm3 Hgb 8.2 L (12.0-16.0) gm/dl Hct 26.7 L (35-47) % MCV 95.7 (78-100) fl MCH 29.4 (26-32) pg MCHC 30.7 L (32-36) g/dl RDW 13.6 (11.5-14.0) % Plt Count 339 (150-450) K/mm3 MPV 8.8 (7.5-11.0) fl Gran % 80.1 H (36.0-66.0) % Eos # (Auto) 0.17 (0-0.5) Absolute Lymphs (auto) 1.09 (1.0-4.6) Absolute Monos (auto) 0.86 (0.0-1.3) Lymphocytes % 10.1 L (24.0-44.0) % Monocytes % 8.0 (0.0-12.0) % Eosinophils % 1.6 (0.00-5.0) % Basophils % 0.2 (0.0-0.4) % Absolute Granulocytes 8.66 H (1.4-6.9) Basophils # 0.02 (0-0.4) PT (9.95-12.35) SECONDS INR (0.8-3.0) APTT (25.3-37.0) SECONDS D-Dimer (215-500) ng/mL Sodium 133 L (137-145) mmol/L Potassium 5.0 (3.5-5.1) mmol/L Chloride 101 (98-107) mmol/L Carbon Dioxide 24 (22-30) mmol/L Anion Gap 12.8 (5-15) MEQ/L BUN 29 H (7-17) mg/dL Creatinine 1.86 H (0.52-1.04) mg/dL Estimated GFR 27.6 ML/MIN Glucose 143 H (74-106) mg/dL Lactic Acid (0.4-2.0) Calcium 9.0 (8.4-10.2) mg/dL Magnesium 2.5 H (1.6-2.3) mg/dL Total Bilirubin 0.70 (0.2-1.3) mg/dL AST 47 H (14-36) U/L ALT 27 (0-35) U/L Alkaline Phosphatase 142 H (38-126) U/L Troponin I 0.026 (0.000-0.034) ng/mL NT-Pro-B Natriuret Pep 42388 H (0-1800) pg/mL Serum Total Protein 8.1 (6.3-8.2) g/dL Albumin 3.6 (3.5-5.0) g/dL TSH 3rd Generation (0.47-4.68) mIU/L 12/09/20 Range/Units 16:38 WBC (4.0-10.5) K/mm3 RBC (4.1-5.4) M/mm3 Hgb (12.0-16.0) gm/dl Hct (35-47) % MCV (78-100) fl MCH (26-32) pg MCHC (32-36) g/dl RDW (11.5-14.0) % Plt Count (150-450) K/mm3 MPV (7.5-11.0) fl Gran % (36.0-66.0) % Eos # (Auto) (0-0.5) Absolute Lymphs (auto) (1.0-4.6) Absolute Monos (auto) (0.0-1.3) Lymphocytes % (24.0-44.0) % Monocytes % (0.0-12.0) % Eosinophils % (0.00-5.0) % Basophils % (0.0-0.4) % Absolute Granulocytes (1.4-6.9) Basophils # (0-0.4) PT (9.95-12.35) SECONDS INR (0.8-3.0) APTT (25.3-37.0) SECONDS D-Dimer (215-500) ng/mL Sodium (137-145) mmol/L Potassium (3.5-5.1) mmol/L Chloride (98-107) mmol/L Carbon Dioxide (22-30) mmol/L Anion Gap (5-15) MEQ/L BUN (7-17) mg/dL Creatinine (0.52-1.04) mg/dL Estimated GFR ML/MIN Glucose (74-106) mg/dL Lactic Acid 1.2 (0.4-2.0) Calcium (8.4-10.2) mg/dL Magnesium (1.6-2.3) mg/dL Total Bilirubin (0.2-1.3) mg/dL AST (14-36) U/L ALT (0-35) U/L Alkaline Phosphatase (38-126) U/L Troponin I (0.000-0.034) ng/mL NT-Pro-B Natriuret Pep (0-1800) pg/mL Serum Total Protein (6.3-8.2) g/dL Albumin (3.5-5.0) g/dL TSH 3rd Generation (0.47-4.68) mIU/L - Progress Progress: re-examined Air Movement: fair Progress Note: 12/09/20 18:08 79 years old is evaluated for feeling lightheaded with bending over and shortness of breath with cough. She is given breathing treatment. EKG showed sinus rhythm with some PACs/PVCs. Negative initial troponin. Elevated BNP and chest x-ray showed bilateral airspace disease with congestion. Given a dose of Lasix 40 mg IV along with IV antibiotics. She has normal white count but her hemoglobin dropped from 13-8.2. Patient denies any history of dark stools. She is started on Protonix. I believe with such a drop in hemoglobin is causing her chest tightness, shortness of breath and lightheadedness. She has a chronic renal failure which is stable. Discussed with Dr. Camarena, recommended obtaining D-dimer and rapid Covid. 12/09/20 19:00 D-dimers are elevated, patient needs a VQ scan as she is not a candidate for CTA chest because of her renal functions. VQ scan cannot be done here at [facility] because of the weekend. Patient cannot be started on anticoagulation because of her dropping hemoglobin. Recommended transfer. I have discussed with Dr. Baird at [facility] ER and he has discussed with Dr. Roc MENDES on-call and patient is accepted for transfer. Plan discussed with patient who understand and agrees with it. Blood Culture(s) Obtained: Yes Antibiotics given: Yes Discussed with Dr.: Tera Will see patient in: hospital (full admit) Counseled pt/family regarding: lab results, diagnosis, rad results - Departure Departure Disposition: Transfer Clinical Impression: Acute respiratory failure with hypoxia, Acute anemia, Elevated d-dimer Bilateral pneumonia Qualifiers: Pneumonia type: due to unspecified organism Lung location: unspecified part of lung Qualified Code(s): J18.9 - Pneumonia, unspecified organism CHF exacerbation Qualifiers: Heart failure type: unspecified Qualified Code(s): I50.9 - Heart failure, unspecified Condition: Fair Critical Care Time: Yes Critical Care Time(excluding separately billable procedures): Critical 30-74 mins Referrals: CATHY ROSENBERG [Primary Care Provider] - Instructions: Heart Failure
[2020-12-09 17:10] LABS: Absolute Neutrophil Ct (ANC) 8.66 (1.4-6.9); BASOPHIL % 0.2 % (0.0-0.4); Basophil (Absolute #) 0.02 (0-0.4); Eosinophil % 1.6 % (0.00-5.0); Eosinophil (Absolute #) 0.17 (0-0.5); Hematocrit 26.7 % (35-47); Hemoglobin 8.2 gm/dl (12.0-16.0); Lymphocyte (Absolute #) 1.09 (1.0-4.6); Lymphocytes % 10.1 % (24.0-44.0); Mean Cell Volume 95.7 fl (78-100); Mean Corpuscular Hemoglobin 29.4 pg (26-32); Mean Corpuscular Hgb Concent. 30.7 g/dl (32-36); Mean Platelet Volume 8.8 fl (7.5-11.0); Monocyte (Absolute #) 0.86 (0.0-1.3); Neutrophil % 80.1 % (36.0-66.0); Platelet Count 339 K/mm3 (150-450); Red Blood Count 2.79 M/mm3 (4.1-5.4); Red Cell Distribution Width 13.6 % (11.5-14.0); White Blood Count 10.8 K/mm3 (4.0-10.5)
[2020-12-09 17:28] LABS: ALBUMIN 3.6 g/dL (3.5-5.0); ANION GAP 12.8 MEQ/L (5-15); BILIRUBIN,TOTAL 0.7 mg/dL (0.2-1.3); Creatinine 1 1.86 mg/dL (0.52-1.04); EST GLOMERULAR FILTRATION RATE 27.6 ML/MIN; MAGNESIUM 2.5 mg/dL (1.6-2.3); Total Protein 8.1 g/dL (6.3-8.2)
[2020-12-09] MEDS ORDERED: Zithromax 500 MG/ 250 ML NaCl Premix 500 MG/250 ML IVPB IV STA (17:41)
[2020-12-09] MEDS ORDERED: ROCEPHIN 1 Gm-D5w 50 ml Bag** 1 G/50 ML IVPB IV STA (17:41)
[2020-12-09] MEDS ORDERED: PROTONIX 40 MG IV IV ONE ×3 (17:42→20:26)
[2020-12-09] MEDS ORDERED: PROTONIX 40 MG IV*** 80 MG in Sodium Chloride 0.9% 500 ML 500 ML IV SCH (17:45)
[2020-12-09] MEDS ORDERED: Lasix 40 MG/4 ML IV ONE (17:54)
[2020-12-09 17:56] LABS: INR 1.36 (0.8-3.0); PROTIME 15.4 SECONDS (9.95-12.35)
[2020-12-09 17:59] LABS: PTT 33.4 SECONDS (25.3-37.0)
[2020-12-09] MEDS ORDERED: Lasix 40 MG/4 ML ONE (18:17)
[2020-12-09] MEDS ORDERED: ROCEPHIN 1 Gm-D5w 50 ml Bag** 1 G/50 ML IVPB IV ONE (18:18)
[2020-12-09] MEDS ORDERED: Zithromax 500 MG/ 250 ML NaCl Premix 500 MG/250 ML IVPB IV ONE (18:18)
--- NOTE | 2020-12-09 18:29 | XRAY ---
Indication: Short of breath. Comparison: March 05, 2018. Portable chest demonstrates new diffuse bilateral patchy airspace disease without large effusion. Chronic right hemidiaphragm elevation. Heart is not enlarged again with CABG surgery. New left dual-lead pacemaker. Bony thorax intact again with osteopenia, degenerative changes, and levoscoliosis. Impression: New diffuse bilateral airspace disease. Incidental chronic findings detailed above.
[2020-12-09 19:06] LABS: Appearance CLOUDY (CLEAR); Bacteria RARE /HPF (NEGATIVE); Bilirubin NEGATIVE (NEGATIVE); Blood SMALL Ery/ul (0-5); Epithelial Cells FEW /HPF (FEW); Glucose 50 mg/dL (NEGATIVE); Hyaline Casts 0-2 /LPF (0-2); Ketones NEGATIVE (NEGATIVE); Leukocyte Esterase TRACE (NEGATIVE); Mucus SLIGHT /HPF (NEGATIVE); Nitrite NEGATIVE (NEGATIVE); Protein,Urine Dip 100 (Negative); Specific Gravity 1.018 (1.005-1.025); Urobilinogen 2 mg/dL (0-1); WBC 0-2 /HPF (0-5)
[2020-12-09 19:13] LABS: INFLUENZA A NEGATIVE (NEGATIVE); INFLUENZA B NEGATIVE (NEGATIVE); RESPIRATORY SYNCTIAL VIRUS NEGATIVE (Negative)
[2020-12-09 20:25] VITALS: BP 143/73; PULSE 79; O2SAT 100
[2020-12-09] MEDS ORDERED: Sodium Chloride 0.9% 500 ML 500 ML IV ONE (20:26)
== END 2020-12-09 20:30 | disposition short-term general hospital (02) ==
LOC: ED 16:08
DX: J18.9 Pneumonia, unspecified organism (principal); I50.9 Heart failure, unspecified; J96.01 Acute respiratory failure with hypoxia; D64.9 Anemia, unspecified; R42 Dizziness and giddiness; R79.89 Other specified abnormal findings of blood chemistry; E11.9 Type 2 diabetes mellitus without complications; R60.9 Edema, unspecified; R05 Cough; R53.83 Other fatigue; E78.5 Hyperlipidemia, unspecified; I10 Essential (primary) hypertension; E03.9 Hypothyroidism, unspecified
CPT/HCPCS: 0241U; 36000; 36415; 71045; 80053; 81001; 83605; 83735; 83880; 84443; 84484; 85025; 85379; 85610; 85730; 87040; 87086; 93005; 93041; 94640; 96365; 96367; 96374; 96375; 99285; 99291; J0456; J0696; J1940; A9270-GY

== ENCOUNTER 2022-05-13 09:25 | Day surgery (SDC) | payer MEDICARE ==
[~2022-05-13 09:25] MED LIST: XYLOCAINE 1% HCL 20 ML MDV ONE
[2022-05-13 10:59] VITALS: BP 143/78; PULSE 122; O2SAT 93
== END 2022-05-13 11:55 | disposition home or self-care (01) ==
LOC: SDC 09:25
PROVIDERS: ATTEND Surgery
DX: Z53.8 Procedure and treatment not carried out for other reasons (principal); I10 Essential (primary) hypertension
CPT/HCPCS: 93005

== ENCOUNTER 2022-07-15 17:27 | Emergency (ER) | payer MEDICARE ==
--- NOTE | 2022-07-15 17:57 | ERPHSYRPT ---
- History of Present Illness Time Seen by Provider: 07/15/22 17:35 Source: patient, family Exam Limitations: no limitations Patient Subjective Stated Complaint: PT states "I was dropped at dialysis last friday and now my right leg is killing me and I cannot stand and I am covered in bruises." Triage Nursing Assessment: PT presented alert and oriented X 3, skin pwd. Pt has bruising noted to left flank. Pt right leg slightly swollen compared to the left. PT has bruising noted to bilat breast. Physician History: This is an 81-year-old white female patient on Friday dialysis and presents to the emergency department after dialysis that was performed today with complaints of back pain and right hip pain as well as significant bruising in all of these areas and on her chest wall after "being dropped" at dialysis approximately 1 week ago during transfer from bed to the wheelchair. Patient states that she did not fall on her own. 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 Patient also has generalized edema. She has a history of CHF, sick sinus syndrome, gastroesophageal reflux disease, insulin-dependent diabetes, hypothyroidism, coronary artery disease, pacemaker placed, hypertension, hyperlipidemia and CABG. Patient has had 3 back surgeries in the past and a right total hip surgery. Occurred: last week Injuries/Pain Location: chest, back, pelvis, lower, middle Loss of Consciousness: no loss of consciousness Severity of Pain-Max: mild (To moderate) Severity of Pain-Current: mild (To moderate) Modifying Factors: Improves With: movement Associated Symptoms (Fall): extremity injury (Right hip), trouble walking ( Because of the new pain in the back and right hip), No abdominal pain, No chest pain, No shortness of breath Allergies/Adverse Reactions: No Known Drug Allergies Allergy (Verified 12/09/20 16:34) Home Medications: Levothyroxine Sodium [Euthyrox] 125 mcg PO DAILY 10/30/20 [History] Insulin Glargine,Hum.rec.anlog [Lantus Solostar] 10 unit SQ HS 10/31/20 [History] Hydrocodone/Acetaminophen [Loomis 10-325 Tablet] 7.5 mg PO TID PRN PRN 12/09/20 [History] Insulin Lispro [Humalog] 1 units SQ ACHS 12/09/20 [History] Allopurinol 100 mg [Zyloprim 100 mg] 100 mg PO BID 05/13/22 [History] Dapagliflozin Propanediol [Farxiga] 10 mg PO DAILY 05/13/22 [History] Lorazepam 0.5 mg [Ativan 0.5 MG] 0.25 mg PO Q8H PRN PRN 05/13/22 [History] Midodrine HCl [Proamatine] 5 mg PO BID 05/13/22 [History] Omeprazole Magnesium [Prilosec Otc] 20 mg PO DAILY 05/13/22 [History] Ondansetron ODT 4 MG [Zofran Odt 4 mg] 4 mg PO Q6-8HPRN PRN 05/13/22 [History] Potassium Bicarbonate/Cit AC [Klor-Con-Ef 25 Meq Tab Eff] 25 meq PO BID 05/13/22 [History] Hydroxyzine HCl 25 mg [Atarax 25 mg] 25 mg PO DAILY 06/03/22 [History] Metoprolol Tartrate 50 mg [Lopressor 50 MG] 50 mg PO BID 06/03/22 [History] Torsemide 100 mg PO DAILY 07/15/22 [History] Hx Tetanus, Diphtheria Vaccination/Date Given: Yes Hx Influenza Vaccination/Date Given: Yes Hx Pneumococcal Vaccination/Date Given: Yes Immunizations Up to Date: Yes Travel Risk - International Travel Have you traveled outside of the country in past 3 weeks: No - Coronavirus Screening Are you exhibiting any of the following symptoms?: No Close contact with a COVID-19 positive Pt in past 14-21 Days: No - Vaccine Status Have you recieved a Covid-19 vaccination: Yes 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 Multiple skin tears present) Neurological: No Symptoms Psychological: No Symptoms, Hallucinations Hematologic/Lymphatic: No Symptoms Immunological/Allergic: No Symptoms All Other Systems: Reviewed and Negative - Past Medical History Pertinent Past Medical History: Yes Neurological History: No Pertinent History ENT History: Cataracts Cardiac History: Angina, Arrhythmia, Coronary Artery Disease, High Cholesterol, Hypertension, Other Respiratory History: CHF Endocrine Medical History: Diabetes Type II, Hypothyroidism Musculoskeletal History: No Pertinent History GI Medical History: No Pertinent History History: Renal Disease Psycho-Social History: Anxiety Female Reproductive Disorders: No Pertinent History Other Medical History: prolapsed bladder. Musculoskeletal: Right total hip replaced and left. mitral valve stenosis. anemia, afib - Past Surgical History Past Surgical History: Yes Neuro Surgical History: No Pertinent History Cardiac: CABG, Cardiac Catheterization Respiratory: No Pertinent History Gastrointestinal: No Pertinent History Genitourinary: No Pertinent History Musculoskeletal: Joint Replacement Female Surgical History: Hysterectomy, Section Other Surgical History: 3 back surgeries. Jw hip replacements. pacemaker Oct 2020. - Social History Smoking Status: Never smoker Exposure to second hand smoke: No Drug Use: none Patient Lives Alone: No - Nursing Vital Signs Nursing Vital Signs: Initial Vital Signs Temperature 98.4 F 07/15/22 17:32 Pulse Rate 82 07/15/22 17:32 Respiratory Rate 20 07/15/22 17:32 Blood Pressure 118/52 07/15/22 17:32 O2 Sat by Pulse Oximetry 97 07/15/22 17:32 Pain Scale Pain Intensity 6 - Lyndsay Coma Score Best Eye Response (Lyndsay): (4) open spontaneously Best Verbal Response (Lyndsay): (5) oriented Best Motor Response (Lyndsay): (6) obeys commands Lyndsay Total: 15 - Physical Exam General Appearance: mild distress, alert, anxiety, cachetic Head Injury: no evidence of injury Eye Exam: PERRL/EOMI, eyes nml inspection ENT Exam: airway nml, nml ext.inspection, No evidence of ENT injury Neck Exam: supple, trachea midline, full range of motion, normal alignment, normal inspection Respiratory/Chest Exam: ecchymosis (Anterior chest wall), No crepitus (Skin and subcutaneous edema but no crepitance) Cardiovascular Exam: normal heart sounds, regular rate/rhythm Gastrointestinal Exam: soft, normal bowel sounds, No tenderness Rectal Exam: not done Back Exam: decreased range of motion, muscle spasm, other (Thoracic level and lumbar level ecchymosis.) Extremity Exam: hip tenderness (On the right), pedal edema, swelling (Significant swelling and generalized edema), tenderness (Right hip) Neurologic Exam: alert, oriented x 3, cooperative, customer 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 II-XII nml as tested, normal mood/affect Skin Exam: ecchymosis (See above), other (Generalized edema) SpO2 Interpretation: normal SpO2: 97 O2 Delivery: Room Air Ordered Tests: Active Orders 24 hr Category Date Time Status IV Insertion STAT Care 07/15/22 17:59 Active CHEST WITHOUT CONTRAST [CT] Stat Exams 07/15/22 17:58 Taken LUMBAR SPINE W/O [CT] Stat Exams 07/15/22 17:57 Taken PELVIS WITHOUT CONTRAST [CT] Stat Exams 07/15/22 17:57 Taken RECONSTRUCTION [CT] Stat Exams 07/15/22 17:57 Taken CBC W DIFF Stat Lab 07/15/22 18:05 Completed CMP Stat Lab 07/15/22 18:05 Completed NT PRO BNP Stat Lab 07/15/22 18:05 Completed PROTIME WITH INR Stat Lab 07/15/22 18:05 Completed UA W/RFX CULTURE Stat Lab 07/15/22 Ordered Lab/Rad Data: Laboratory Result Diagrams 07/15/22 18:05 07/15/22 18:05 Laboratory Results 07/15/22 07/15/22 07/15/22 Range/Units 18:05 18:05 18:05 WBC (4.0-10.5) x10^3/uL RBC (4.1-5.4) x10^6/uL Hgb (12.0-16.0) g/dL Hct (35-47) % MCV (78-100) fL MCH (26-32) pg MCHC (32-36) g/dL RDW (11.5-14.0) % Plt Count (150-450) x10^3/uL MPV (7.5-11.0) fL Gran % (36.0-66.0) % Immature Gran % (Auto) (0.00-0.4) % Nucleat RBC Rel Count (0.00-0.1) % Eos # (Auto) (0-0.5) x10^3/uL Immature Gran # (Auto) (0.00-0.03) x10^3u/L Absolute Lymphs (auto) (1.0-4.6) x10^3/uL Absolute Monos (auto) (0.0-1.3) x10^3/uL Absolute Nucleated RBC (0.00-0.01) x10^3u/L Lymphocytes % (24.0-44.0) % Monocytes % (0.0-12.0) % Eosinophils % (0.00-5.0) % Basophils % (0.0-0.4) % Absolute Granulocytes (1.4-6.9) x10^3/uL Basophils # (0-0.4) x10^3/uL PT 13.6 H (9.4-12.5) SECONDS INR 1.32 (0.8-3.0) Sodium 134 L (137-145) mmol/L Potassium 3.6 (3.5-5.1) mmol/L Chloride 91 L (98-107) mmol/L Carbon Dioxide 36 H (22-30) mmol/L Anion Gap 10.3 (5-15) MEQ/L BUN 12 (7-17) mg/dL Creatinine 1.43 H (0.52-1.04) mg/dL Estimated GFR 37.2 ML/MIN Glucose 102 (74-106) mg/dL Calcium 7.8 L (8.4-10.2) mg/dL Total Bilirubin 1.60 H (0.2-1.3) mg/dL AST 44 H (14-36) U/L ALT 16 (0-35) U/L Alkaline Phosphatase 162 H (38-126) U/L NT-Pro-B Natriuret Pep 46595 H (0-1800) pg/mL Serum Total Protein 7.7 (6.3-8.2) g/dL Albumin 3.3 L (3.5-5.0) g/dL 07/15/22 Range/Units 18:05 WBC 10.1 (4.0-10.5) x10^3/uL RBC 3.19 L (4.1-5.4) x10^6/uL Hgb 10.3 L (12.0-16.0) g/dL Hct 31.6 L (35-47) % MCV 99.1 (78-100) fL MCH 32.3 H (26-32) pg MCHC 32.6 (32-36) g/dL RDW 16.3 H (11.5-14.0) % Plt Count 159 (150-450) x10^3/uL MPV 8.8 (7.5-11.0) fL Gran % 79.8 H (36.0-66.0) % Immature Gran % (Auto) 0.6 H (0.00-0.4) % Nucleat RBC Rel Count 0.0 (0.00-0.1) % Eos # (Auto) 0.06 (0-0.5) x10^3/uL Immature Gran # (Auto) 0.06 H (0.00-0.03) x10^3u/L Absolute Lymphs (auto) 1.02 (1.0-4.6) x10^3/uL Absolute Monos (auto) 0.85 (0.0-1.3) x10^3/uL Absolute Nucleated RBC 0.00 (0.00-0.01) x10^3u/L Lymphocytes % 10.1 L (24.0-44.0) % Monocytes % 8.4 (0.0-12.0) % Eosinophils % 0.6 (0.00-5.0) % Basophils % 0.5 (0.0-0.4) % Absolute Granulocytes 8.04 H (1.4-6.9) x10^3/uL Basophils # 0.05 (0-0.4) x10^3/uL PT (9.4-12.5) SECONDS INR (0.8-3.0) Sodium (137-145) mmol/L Potassium (3.5-5.1) mmol/L Chloride (98-107) mmol/L Carbon Dioxide (22-30) mmol/L Anion Gap (5-15) MEQ/L BUN (7-17) mg/dL Creatinine (0.52-1.04) mg/dL Estimated GFR ML/MIN Glucose (74-106) mg/dL Calcium (8.4-10.2) mg/dL Total Bilirubin (0.2-1.3) mg/dL AST (14-36) U/L ALT (0-35) U/L Alkaline Phosphatase (38-126) U/L NT-Pro-B Natriuret Pep (0-1800) pg/mL Serum Total Protein (6.3-8.2) g/dL Albumin (3.5-5.0) g/dL - Progress Progress: improved, pain not gone completely, re-examined Progress Note: 07/15/22 19:44 CAT scan of the chest without contrast shows cardiomegaly with small bilateral regions consistent with CHF. CAT scan of the lumbar and thoracic spine without contrast shows marked T12-L1 endplate erosion worrisome for discitis versus malignancy. There is intra- abdominal ascites and anasarca present. CAT scan of the pelvis without contrast shows an intact right hip arthroplasty. 07/15/22 19:45 Medical decision making: This patient has back pain this been present for at least a week that is acute on chronic. The CAT scan of the spine (thoracic and lumbar) shows a T12-L1 endplate erosion worrisome for discitis versus malignancy. The patient has appointment to see her primary care physician on 07/18/2022. They wish to keep that appointment and not be admitted to the hospital. At this point, I do not feel that it is necessary for placement of this patient in observation or admission. They have morphine and hydrocodone pain medication that controls her pain. Surprisingly, after dialysis today, this patient's labs are stable. Patient has not taken her evening medications and they will do that when she returns home Counseled pt/family regarding: lab results, diagnosis, need for follow-up, rad results - Departure Departure Disposition: Home Clinical Impression: Acute exacerbation of chronic low back pain, Anasarca, CHF (congestive heart failure) Condition: Fair Critical Care Time: No Referrals: LINO INGRAM [Family Provider] - Follow up/PCP as directed Instructions: Heart Failure Additional Instructions: Take your medications as prescribed. Keep your appointment with Dr. Helms on 07/18/2022.
[2022-07-15 18:17] LABS: Absolute Neutrophil Ct (ANC) 8.04 x10^3/uL (1.4-6.9); Basophil (Absolute #) 0.05 x10^3/uL (0-0.4); Eosinophil % 0.6 % (0.00-5.0); Eosinophil (Absolute #) 0.06 x10^3/uL (0-0.5); Hematocrit 31.6 % (35-47); Hemoglobin 10.3 g/dL (12.0-16.0); Lymphocyte (Absolute #) 1.02 x10^3/uL (1.0-4.6); Lymphocytes % 10.1 % (24.0-44.0); Mean Cell Volume 99.1 fL (78-100); Mean Corpuscular Hemoglobin 32.3 pg (26-32); Mean Corpuscular Hgb Concent. 32.6 g/dL (32-36); Mean Platelet Volume 8.8 fL (7.5-11.0); Monocyte (Absolute #) 0.85 x10^3/uL (0.0-1.3); Monocytes % 8.4 % (0.0-12.0); Neutrophil % 79.8 % (36.0-66.0); Platelet Count 159 x10^3/uL (150-450); Red Blood Count 3.19 x10^6/uL (4.1-5.4); Red Cell Distribution Width 16.3 % (11.5-14.0); White Blood Count 10.1 x10^3/uL (4.0-10.5)
[2022-07-15 18:39] LABS: ALBUMIN 3.3 g/dL (3.5-5.0); ANION GAP 10.3 MEQ/L (5-15); BILIRUBIN,TOTAL 1.6 mg/dL (0.2-1.3); Calcium 7.8 mg/dL (8.4-10.2); Creatinine 1 1.43 mg/dL (0.52-1.04); EST GLOMERULAR FILTRATION RATE 37.2 ML/MIN; Potassium 3.6 mmol/L (3.5-5.1); Total Protein 7.7 g/dL (6.3-8.2)
[2022-07-15 18:45] LABS: INR 1.32 (0.8-3.0); PROTIME 13.6 SECONDS (9.4-12.5)
[2022-07-15 19:17] VITALS: PULSE 96
[2022-07-15 20:03] VITALS: BP 99/54; O2SAT 98
--- NOTE | 2022-07-16 08:40 | XRAY ---
Indication: Pain following fall. Multiple contiguous axial images obtained through the chest without contrast. Comparison: None Heart is enlarged mitral valve and coronary calcifications. There has been CABG surgery with left dual-lead pacemaker and right double-lumen dialysis catheter placement. Aorta is mildly arteriosclerotic without aneurysm. Lungs demonstrate pulmonary edema with small bibasilar effusions and compressive atelectasis. Above findings favor cardiac decompensation/CHF. Bony thorax demonstrates osteopenia and mild/moderate degenerative changes throughout the visualized spine. Acute comminuted and displaced fractures of the posterior left T10-T12 ribs with small hemothorax. No pneumothorax. T12-L1 interspace demonstrates opposing endplate erosive changes slightly effaces the thecal sac concerning for discitis with malignancy not completely excluded. Limited upper abdomen demonstrates distended gallbladder, small ascites, and partially visualized 1.2 cm left renal cyst. Impression: 1. Cardiomegaly, pulmonary edema, and bibasilar effusions favoring cardiac decompensation/CHF. Also anasarca and small abdominal ascites which may be related. 2. Acute comminuted fractures of the posterior left T10-T12 ribs with small hemothorax. 3. Abnormal T12-L1 interspace with opposing endplate erosive changes worrisome for discitis. Malignancy not completely excluded in the right clinical setting. 4. Distended gallbladder better evaluated with sonogram if clinically warranted. 5. Incidental CABG surgery, arteriosclerotic disease, osteopenia, multilevel degenerative spondylosis, and left renal cyst.
--- NOTE | 2022-07-16 08:44 | XRAY ---
Indication: Pain following fall. Multiple contiguous axial images obtained through the lumbar spine without contrast. Sagittal and coronal reformatted images obtained. Comparison: None Lumbar spine demonstrates osteopenia and mild/moderate degenerative changes throughout the visualized spine. Acute comminuted and displaced fractures of the posterior left T10-T12 ribs with small hemothorax. T12-L1 interspace demonstrates opposing endplate erosive changes slightly effaces the thecal sac concerning for discitis with malignancy not completely excluded. Sagittal and coronal reformatted images demonstrates moderate levoscoliosis centered at L1. Visualized noncontrasted soft tissues demonstrates bibasilar effusions and moderate scattered arteriosclerotic calcifications. CT chest reported separately. Impression: 1. Acute comminuted fractures of the posterior left T10-T12 ribs with small hemothorax. 2. Abnormal T12-L1 interspace with opposing endplate erosive changes worrisome for discitis. Malignancy not completely excluded in the right clinical setting. 3. Incidental arteriosclerotic disease, osteopenia, multilevel degenerative spondylosis, and levoscoliosis.
--- NOTE | 2022-07-16 08:48 | XRAY ---
Indication: Coccyx and right leg pain following fall. Multiple contiguous axial images obtained through the pelvis without contrast with special attention to the osseous structures. Comparison: None Incompletely visualized bilateral total hip arthroplasty produces extensive beam artifact limiting exam. Bipolar prosthesis and acetabular screws appears bilaterally intact. Osseous structures demineralized. No acute fracture, dislocation, or suspicious bony lesions. SI joints are bilaterally symmetric with degenerative changes. Visualized lower lumbar spine demonstrates degenerative changes reported separately. Visualized noncontrasted soft tissues demonstrates distended urinary bladder with mild circumferential wall thickening either incomplete distention versus cystitis. No pelvic free fluid/air. Extensive scattered vascular calcifications. Diffuse anasarca. Impression: 1. Beam artifact from bilateral total hip arthroplasty. 2. Urinary bladder circumferential wall thickening either incomplete distention versus cystitis. 3. Extensive arteriosclerotic disease and diffuse anasarca. 4. No acute findings.
== END 2022-07-15 20:11 | disposition home or self-care (01) ==
LOC: ED 17:27
DX: G89.29 Other chronic pain (principal); M54.50 Low back pain, unspecified; R18.8 Other ascites; M25.551 Pain in right hip; R07.9 Chest pain, unspecified; E78.5 Hyperlipidemia, unspecified; I13.2 Hypertensive heart and chronic kidney disease with heart failure and with stage 5 chronic kidney disease, or end stage renal disease; E11.22 Type 2 diabetes mellitus with diabetic chronic kidney disease; N18.6 End stage renal disease; I50.9 Heart failure, unspecified; Z99.2 Dependence on renal dialysis; Z79.4 Long term (current) use of insulin; Z79.891 Long term (current) use of opiate analgesic; Z79.899 Other long term (current) drug therapy
CPT/HCPCS: 36000; 36415; 71250; 72131; 72192; 76376; 80053; 83880; 85025; 85610; 99283